=== PATIENT | female | born 1970 | race Caucasian/White ===

== ENCOUNTER 2017-11-04 14:44 | Outpatient (CLI) | payer OTHER | END 2017-11-04 14:45 | disposition home or self-care (01) | LOC: BICULT 14:44 | PROVIDERS: ATTEND Internal Medicine Cardiovascular Disease | DX: I10 Essential (primary) hypertension (principal); R93.8 Abnormal findings on diagnostic imaging of other specified body structures | CPT/HCPCS: 76700; 76770 ==

== ENCOUNTER 2017-11-16 07:24 | Outpatient (CLI) | payer OTHER ==
--- NOTE | 2017-11-16 10:06 | CT ---
CT ANGIOGRAM ABDOMEN WITH IV CONTRAST AND 3D RECONSTRUCTIONS: Date: 11-16-17 History: Essential primary hypertension. Shortness of breath and chest pain for the past month. FINDINGS: There is minimal calcified atherosclerotic plaque seen within the abdominal aorta. The abdominal aort a and partially visualized iliac arteries are normal in caliber without evidence of an aortic dissect ion. Single patent bilateral renal arteries are visualized. The celiac, superior mesenteric, and inferior mesenteric arteries are patent. The lung bases, liver, pancreas, and bilateral adrenal glands, and left kidney demonstrate a normal C T appearance for arterial phase of imaging. Calcified granuloma is again present in the spleen. There is a large exophytic 6 cm hypodense cystic renal lesion superior pole right kidney which does d emonstrate fluid attenuation consistent with a cyst. This is larger in size compared to the prior stormy dy in 2008 where this measured 4.6 cm. There are areas of cortical scarring within the midportion of the inferior pole right kidney with sub centimeter hypodense lesion again seen in the inferior pole right kidney, stable from prior study lik ever related to a small cyst. There is colonic diverticulosis. Lung bases are clear. Small fat containing umbilical hernia is present. IMPRESSION: 1. Single patent bilateral renal arteries. 2. Right renal cysts with areas of scarring within the mid portion of the inferior pole right kidney. 3. Small hiatal hernia. 4. Colonic diverticulosis. POS: CET
== END 2017-11-16 07:25 | disposition home or self-care (01) ==
LOC: SCSCT 07:24
PROVIDERS: ATTEND Internal Medicine Cardiovascular Disease
DX: I10 Essential (primary) hypertension (principal); N28.1 Cyst of kidney, acquired; N28.89 Other specified disorders of kidney and ureter; K44.9 Diaphragmatic hernia without obstruction or gangrene; K57.30 Diverticulosis of large intestine without perforation or abscess without bleeding
CPT/HCPCS: 74175

== ENCOUNTER 2020-02-18 22:27 | Emergency (ER) | payer OTHER ==
--- NOTE | 2020-02-18 23:29 | RAD ---
Exam: 2 view soft tissue neck HISTORY: Food stuck in throat, episode happened yesterday. Episode has resolved. FINDINGS: No prevertebral soft tissue swelling Visualized aerodigestive tract appears to be patent. No radiopaque foreign body Epiglottis has a normal caliber On the AP and lateral projections, no significant degenerative change of the cervical spine. No fract ures of the visualized cervical spine. No malalignment. IMPRESSION: No radiopaque foreign body. Direct visualization if clinically warranted.
== END 2020-02-19 02:12 | disposition home or self-care (01) ==
LOC: ERS 22:27
DX: K22.2 Esophageal obstruction (principal); I10 Essential (primary) hypertension
CPT/HCPCS: 70360; 96374; J1610

== ENCOUNTER 2022-07-15 08:33 | Outpatient (CLI) | payer BC | END 2022-07-15 08:34 | disposition home or self-care (01) | LOC: BICMAMMO 08:33 | PROVIDERS: ATTEND Nurse Practitioner Family | DX: Z12.31 Encounter for screening mammogram for malignant neoplasm of breast (principal) | CPT/HCPCS: 77063; 77067 ==